=== PATIENT | female | born 1970 | race Caucasian/White ===

== ENCOUNTER 2017-05-07 20:34 | Emergency (ER) | payer OTHER ==
[2017-05-07 20:57] VITALS: BMI 23.0
[2017-05-07 21:03] VITALS: BP 127/79; TEMP 98.2
--- NOTE | 2017-05-07 21:25 | ED PDOC ---
Arrival/HPI - General Chief Complaint: Abdominal Pain Time Seen by Provider: 05/07/17 21:11 Historian: Patient - History of Present Illness Narrative History of Present Illness (Text): 05/07/17 21:11 A 46 year old female, whose past medical history includes asthma, presents to the emergency department complaining of abdominal discomfort and multiple episodes of non-bloody diarrhea for the past few days. Patient reports her symptoms began while visiting [facility], she states she recently returned yesterday night. Patient also reports bilateral ear pain, cough with green phlegm and runny nose but denies any fever, chills, nausea, vomiting, urinary symptoms, chest pain, shortness of breath or any other complaints. Time/Duration: Other (few days) Symptom Course: Unchanged Quality: Other Context: Other Past Medical History - Provider Review Nursing Documentation Reviewed: Yes - Travel History If Yes, travel location?: [facility] [place] - Infectious Disease Hx of Infectious Diseases: None - Tetanus Immunization Tetanus Immunization: Unknown - Reproductive Menopause: Yes - Cardiac Hx Cardiac Disorders: Yes - Neurological Hx Neurological Disorder: No - HEENT Hx HEENT Disorder: No - Renal Hx Renal Disorder: Yes Hx Pyelonephritis: Yes - Endocrine/Metabolic Hx Endocrine Disorders: Yes Hx Diabetes Mellitus Type 2: Yes (pre diabetic) - Hematological/Oncological Hx Blood Disorders: No - Integumentary Hx Dermatological Disorder: No - Musculoskeletal/Rheumatological Hx Musculoskeletal Disorders: No Hx Falls: No - Gastrointestinal Hx Gastrointestinal Disorders: No Hx Bowel Surgery: No - Genitourinary/Gynecological Hx Genitourinary Disorders: No - Psychiatric Hx Psychophysiologic Disorder: No Hx Depression: No Hx Emotional Abuse: No Hx Physical Abuse: No Hx Substance Use: No - Surgical History Hx Cholecystectomy: Yes Hx Orthopedic Surgery: Yes (right shoulder torn rotatator cuff sx 1999) Hx Tubal Ligation: Yes Other/Comment: breast reduction, tummy tuck, - Anesthesia Hx Anesthesia: Yes Hx Anesthesia Reactions: No - Suicidal Assessment Feels Threatened In Home Enviroment: No Family/Social History - Physician Review Nursing Documentation Reviewed: Yes Family/Social History: No Known Family HX Smoking Status: Light Smoker < 10 Cigarettes Daily Hx Alcohol Use: No Hx Substance Use: No Hx Substance Use Treatment: No Allergies/Home Meds Allergies/Adverse Reactions: Allergies No Known Allergies Allergy (Verified 01/09/14 14:46) Home Medications: Home Meds Medication Instructions Recorded Confirmed Dulaglutide [Trulicity] 0 mg SC QWK 11/30/15 05/07/17 Canagliflozin [Invokana] 100 mg PO DAILY 05/07/17 05/07/17 Naproxen Sod/Diphenhydramine 1 tab PO HS 05/07/17 05/07/17 [Holly Addison] Review of Systems - Physician Review All systems were reviewed & negative as marked: Yes - Review of Systems Constitutional: absent: Fevers, Night Sweats ENT: TMJ Pain (bilaterally), Rhinorrhea Respiratory: Cough, Sputum. absent: SOB Cardiovascular: absent: Chest Pain Gastrointestinal: Abdominal Pain, Diarrhea. absent: Nausea, Vomiting Genitourinary Female: absent: Dysuria, Frequency, Hematuria, Urine Output Changes Physical Exam Vital Signs Reviewed: Yes Vital Signs Temp Pulse Resp BP Pulse Ox 05/07/17 22:42 74 18 98 05/07/17 21:02 98.2 F 105 H 16 127/79 100 Temperature: Afebrile Blood Pressure: Normal Pulse: Tachycardic Respiratory Rate: Normal Appearance: Positive for: Well-Appearing, Non-Toxic, Comfortable Pain Distress: None Mental Status: Positive for: Alert and Oriented X 3 - Systems Exam Head: Present: Atraumatic, Normocephalic Pupils: Present: PERRL Extroacular Muscles: Present: EOMI Conjunctiva: Present: Normal Ears: Present: Erythema (to left TM canal), TM Bulging (left ear), TM Perf ( right ear) Mouth: Present: Moist Mucous Membranes Pharnyx: Present: Normal. No: ERYTHEMA, EXUDATE, TONSILS ENLARGED Neck: Present: Normal Range of Motion Respiratory/Chest: Present: Good Air Exchange, Wheezes (scant wheezing). No: Respiratory Distress, Accessory Muscle Use Cardiovascular: Present: Regular Rate and Rhythm, Normal S1, S2. No: Murmurs Abdomen: Present: Normal Bowel Sounds. No: Tenderness, Distention, Peritoneal Signs Back: Present: Normal Inspection Upper Extremity: Present: Normal Inspection. No: Cyanosis, Edema Lower Extremity: Present: Normal Inspection. No: Edema Neurological: Present: GCS=15, CN II-XII Intact, Speech Normal Skin: Present: Warm, Dry, Normal Color. No: Rashes Psychiatric: Present: Alert, Oriented x 3, Normal Insight, Normal Concentration Medical Decision Making ED Course and Treatment: 05/07/17 21:11 Impression: A 46 year old female with abdominal discomfort and non-bloody diarrhea. Patient recently traveled back from [place]. She also complains of bilateral ear pain, cough with green phlegm and rhinorrhea. Plan: -- Chest xray -- Labs -- Reassess and disposition Progress Notes: 05/07/17 21:56 Cxray negative for pnuemonia 05/07/17 22:14 Labs grossly normal. Abdomen soft NT/ND. - Lab Interpretations Lab Results: 05/07/17 21:35 05/07/17 21:35 Lab Results 05/07/17 21:35: Sodium 143, Potassium 3.8, Chloride 105, Carbon Dioxide 28, Anion Gap 14, BUN 16, Creatinine 1.1, Est GFR ( Amer) > 60, Est GFR (Non- Af Amer) 53, Random Glucose 185 H, Calcium 9.4, Phosphorus 3.5, Magnesium 1.8, Total Bilirubin 0.3, AST 26, ALT 29, Alkaline Phosphatase 76, Total Protein 6.8 , Albumin 4.0, Globulin 2.7, Albumin/Globulin Ratio 1.5, Lipase 226 05/07/17 21:35: WBC 6.4, RBC 4.48, Hgb 13.8, Hct 41.0, MCV 91.5, MCH 30.8, MCHC 33.7, RDW 12.7, Plt Count 218, MPV 9.7, Gran % 55.3, Lymph % (Auto) 33.7, [place] % (Auto) 8.2 H, Eos % (Auto) 2.6, Baso % (Auto) 0.2, Gran # 3.56, Lymph # 2.2, [place] # 0.5, Eos # 0.2, Baso # 0.01 I have reviewed the lab results: Yes - RAD Interpretation Radiology Orders: 05/07/17 CHEST PORTABLE [RAD] Stat - Medication Orders Current Medication Orders: Discontinued Medications Amoxicillin (Amoxil 500 Mg Cap) 500 mg PO STAT STA PRN Reason: Protocol Stop: 05/07/17 22:31 Last Admin: 05/07/17 22:42 Dose: 500 mg Ketorolac Tromethamine (Toradol) 30 mg IVP STAT STA Stop: 05/07/17 22:07 Last Admin: 05/07/17 22:23 Dose: 30 mg - Scribe Statement The provider has reviewed the documentation as recorded by the Natanael East Provider Natanael Attestation: All medical record entries made by the Daniiibe were at my direction and personally dictated by me. I have reviewed the chart and agree that the record accurately reflects my personal performance of the history, physical exam, medical decision making, and the department course for this patient. I have also personally directed, reviewed, and agree with the discharge instructions and disposition. Disposition/Present on Arrival - Present on Arrival Any Indicators Present on Arrival: No History of DVT/PE: No History of Uncontrolled Diabetes: No Urinary Catheter: No History of Decub. Ulcer: No History Surgical Site Infection Following: None - Disposition Have Diagnosis and Disposition been Completed?: Yes Diagnosis: Otitis media, Perforated tympanic membrane, URI (upper respiratory infection), Diarrhea Disposition: HOME/ ROUTINE Disposition Time: 21:57 Patient Plan: Discharge Condition: GOOD Discharge Instructions (ExitCare): Traveler's Diarrhea (ED), Otitis Media (ED) , Upper Respiratory Infection (ED) Additional Instructions: Take full course of antibiotics. Return to ED if condition worsens. Follow-up with PMD within 2 days Prescriptions: Amoxicillin 500 mg PO TID #30 tablet Benzonatate [Tessalon Perles] 100 mg PO TID PRN #20 sgl PRN Reason: Cough Ciprofloxacin/Dexamethasone [Ciprodex 0.3%-0.1% 7.5 Ml] 2 drop AU QID #1 bottle Referrals: Argelia Mo MD [Primary Care Provider] - Follow up with primary Forms: [employer] ([place])
[2017-05-07 21:43] LABS: BASO # 0.01 K/mm3 (0.0-2.0); BASO % 0.2 % (0.0-3.0); EOS # 0.2 (0.0-0.7); EOS % 2.6 % (1.5-5.0); GRAN # 3.56 (1.4-6.5); GRAN % 55.3 % (50.0-68.0); LYMPH # 2.2 (1.2-3.4); LYMPH % 33.7 % (22.0-35.0); MEAN CELL VOLUME 91.5 fl (80.0-105.0); MEAN CORPUSCULAR HEMOGLOBIN 30.8 pg (25.0-35.0); MEAN CORPUSCULAR HGB CONC 33.7 g/dl (31.0-37.0); MEAN PLATELET VOLUME 9.7 fl (7.0-11.0); MONO # 0.5 (0.1-0.6); MONO % 8.2 % (1.0-6.0); RED CELL DISTRIBUTION WIDTH 12.7 % (11.5-14.5); WHITE BLOOD COUNT 6.4 10^3/ul (4.5-11.0)
[2017-05-07 21:54] LABS: ALB/GLOB RATIO 1.5 (1.1-1.8); ALKALINE PHOSPHATASE 76 U/L (38-133); ALT/SGPT 29 U/L (7-56); AST/SGOT 26 U/L (15-39); BILIRUBIN,TOTAL 0.3 mg/dL (0.2-1.3); BLOOD UREA NITROGEN 16 mg/dL (7-21); CALCIUM 9.4 mg/dL (8.4-10.5); CARBON DIOXIDE 28 mmol/L (21-33); CHLORIDE 105 mmol/L (98-107); GFR AFRICAN-AMERICAN > 60; GLUCOSE,RANDOM 185 mg/dL (70-110); LIPASE 226 U/L (23-300); MAGNESIUM 1.8 mg/dL (1.7-2.2); PHOSPHOROUS 3.5 mg/dL (2.5-4.5); POTASSIUM 3.8 mmol/L (3.6-5.0); SODIUM 143 mmol/L (132-148); TOTAL PROTEIN 6.8 g/dL (5.8-8.3)
[2017-05-07 22:42] VITALS: PULSE 74; RESP 18; O2SAT 98
--- NOTE | 2017-05-08 07:15 | RAD ---
HISTORY: cough COMPARISON: 05/18/2016 FINDINGS: LUNGS: No consolidation. 2 to 3 mm calcified granuloma mid left lung zone -unchanged. Otherwise lungs are clear PLEURA: No significant pleural effusion identified, no pneumothorax apparent. CARDIOVASCULAR: Normal. OSSEOUS STRUCTURES: No significant abnormalities. VISUALIZED UPPER ABDOMEN: Right upper quadrant cholecystectomy clips OTHER FINDINGS: None. IMPRESSION: No interval pathology noted. Incidental left mid lung zone granuloma
== END 2017-05-07 22:42 | disposition home or self-care (01) ==
LOC: ED 20:34
DX: J06.9 Acute upper respiratory infection, unspecified (principal); R19.7 Diarrhea, unspecified; H72.91 Unspecified perforation of tympanic membrane, right ear; H66.90 Otitis media, unspecified, unspecified ear
CPT/HCPCS: 71010; 80053; 83690; 83735; 84100; 85025; 96374; 99283; J1885

== ENCOUNTER 2018-02-23 22:47 | Emergency (ER) | payer OTHER ==
[2018-02-23 22:47] VITALS: BMI 23.0
--- NOTE | 2018-02-23 23:06 | ED PDOC ---
Arrival/HPI - General Time Seen by Provider: 02/23/18 23:00 Historian: Patient - History of Present Illness Narrative History of Present Illness (Text): 02/23/18 23:03 47 year old female, pmh including h.pylori, nkda, complaining of burning urinary sensation with frequency x 3 days. Pt. has no nausea or vomiting, no fever or chills, no night sweat, no rash, no numbness or tingling, no other medical or psychological complaints. Past Medical History - Provider Review Nursing Documentation Reviewed: Yes - Infectious Disease Hx of Infectious Diseases: None - Tetanus Immunization Tetanus Immunization: Unknown - Cardiac Hx Cardiac Disorders: Yes - Neurological Hx Neurological Disorder: No - HEENT Hx HEENT Disorder: No - Renal Hx Renal Disorder: Yes Hx Pyelonephritis: Yes - Endocrine/Metabolic Hx Endocrine Disorders: Yes Hx Diabetes Mellitus Type 2: Yes (pre diabetic) - Hematological/Oncological Hx Blood Disorders: No - Integumentary Hx Dermatological Disorder: No - Musculoskeletal/Rheumatological Hx Musculoskeletal Disorders: No Hx Falls: No - Gastrointestinal Hx Gastrointestinal Disorders: No Hx Bowel Surgery: No - Genitourinary/Gynecological Hx Genitourinary Disorders: No - Psychiatric Hx Psychophysiologic Disorder: No Hx Depression: No Hx Emotional Abuse: No Hx Physical Abuse: No Hx Substance Use: No - Surgical History Hx Cholecystectomy: Yes Hx Orthopedic Surgery: Yes (right shoulder torn rotatator cuff sx 1998) Hx Tubal Ligation: Yes Other/Comment: breast reduction, tummy tuck, - Anesthesia Hx Anesthesia: Yes Hx Anesthesia Reactions: No - Suicidal Assessment Feels Threatened In Home Enviroment: No Family/Social History - Physician Review Nursing Documentation Reviewed: Yes Family/Social History: Unknown Family HX Smoking Status: Light Smoker < 10 Cigarettes Daily Hx Alcohol Use: No Hx Substance Use: No Hx Substance Use Treatment: No Allergies/Home Meds Allergies/Adverse Reactions: Allergies No Known Allergies Allergy (Verified 01/09/14 14:46) Home Medications: Home Meds Medication Instructions Recorded Confirmed Dulaglutide [Trulicity] 0 mg SC QWK 11/30/15 02/23/18 Amoxicillin 500 mg PO BID 02/23/18 02/23/18 Clarithromycin [Biaxin Filmtab] 250 mg PO BID 02/23/18 02/23/18 Lansoprazole [Prevacid] 30 mg PO BID 02/23/18 02/23/18 Review of Systems - Review of Systems Constitutional: absent: Fatigue, Fevers Eyes: absent: Vision Changes ENT: absent: Hearing Changes Respiratory: absent: SOB, Cough Cardiovascular: absent: Chest Pain Gastrointestinal: absent: Abdominal Pain, Nausea, Vomiting Genitourinary Female: Dysuria, Frequency. absent: Hematuria, Urine Output Changes, Vaginal Bleeding, Vaginal Discharge Neurological: absent: Headache, Dizziness Psychiatric: absent: Anxiety, Depression, Suicidal Ideation Physical Exam Vital Signs Reviewed: Yes Temperature: Afebrile Blood Pressure: Normal Pulse: Regular Respiratory Rate: Normal Appearance: Positive for: Well-Appearing, Non-Toxic, Comfortable Pain Distress: Mild Mental Status: Positive for: Alert and Oriented X 3 - Systems Exam Head: Present: Atraumatic, Normocephalic Pupils: Present: PERRL Extroacular Muscles: Present: EOMI Conjunctiva: Present: Normal Mouth: Present: Moist Mucous Membranes Neck: Present: Normal Range of Motion Respiratory/Chest: Present: Clear to Auscultation, Good Air Exchange. No: Respiratory Distress, Accessory Muscle Use Cardiovascular: Present: Regular Rate and Rhythm, Normal S1, S2. No: Murmurs Abdomen: No: Tenderness, Distention, Peritoneal Signs, Rebound, Guarding Back: Present: Normal Inspection. No: CVA Tenderness, Midline Tenderness, Paraspinal Tenderness, Pain with Leg Raise, Decubitus Ulcer Upper Extremity: Present: Normal Inspection. No: Cyanosis, Edema Lower Extremity: Present: Normal Inspection. No: Edema Neurological: Present: GCS=15, CN II-XII Intact, Speech Normal, Motor Func Grossly Intact, Gait Normal, Memory Normal Skin: Present: Warm, Dry, Normal Color. No: Rashes Psychiatric: Present: Alert, Oriented x 3, Normal Insight, Normal Concentration Medical Decision Making ED Course and Treatment: 02/23/18 23:50 -labs/ua -IVF/toradol -Observe and reassess 02/24/18 00:19 -Urine hcg is negative. -Labs are non-significant -Urinalysis show +UTI, rocephine IV ordered. -pt. feels much better, no fever or chills, no elevation of wbc, tolerating po, will discharge home. -Discharge home with keflex, pyridium, stay hydrated, bed rest, follow up with your own pmd within 2 days, return to the ER for any new or worsening signs or symptoms. - Lab Interpretations Lab Results: 02/23/18 23:46 02/23/18 23:46 Lab Results 02/23/18 23:46: Urine Color Yellow, Urine Appearance Cloudy, Urine pH 6.0, Ur Specific [place] 1.020, Urine Protein 100 H, Urine Glucose (UA) >=1000, Urine Ketones Negative, Urine Blood Moderate H, Urine Nitrate Positive H, Urine Bilirubin Negative, Urine Urobilinogen 0.2, Ur Leukocyte Esterase Small H, Urine RBC Pending, Urine WBC Pending 02/23/18 23:46: WBC 9.1 D, RBC 4.49, Hgb 13.8, Hct 40.9, MCV 91.1, MCH 30.7, MCHC 33.7, RDW 12.5, Plt Count 217, MPV 9.9, Gran % 70.8 H, Lymph % (Auto) 19.9 L, [place] % (Auto) 7.7 H, Eos % (Auto) 1.4 L, Baso % (Auto) 0.2, Gran # 6.46, Lymph # (Auto) 1.8, [place] # (Auto) 0.7 H, Eos # (Auto) 0.1, Baso # (Auto) 0.02 02/23/18 23:46: Sodium 143, Potassium 3.6, Chloride 102, Carbon Dioxide 29, Anion Gap 16, BUN 17, Creatinine 1.0, Est GFR ( Amer) > 60, Est GFR (Non- Af Amer) 59, Random Glucose 254 H, Calcium 9.8, Magnesium 1.7, Total Bilirubin 0.3, AST 25, ALT 37, Alkaline Phosphatase 83, Total Protein 7.4, Albumin 4.4, Globulin 3.0, Albumin/Globulin Ratio 1.5 - Medication Orders Current Medication Orders: Sodium Chloride (Sodium Chloride 0.9%) 1,000 mls @ 999 mls/hr IV .Q1H1M STA Stop: 02/24/18 00:43 Last Admin: 02/23/18 23:54 Dose: 999 mls/hr eMAR Start Stop Document 02/23/18 23:54 AD (Rec: 02/23/18 23:54 AD [id number]) Intravenous Solution Start Date 02/23/18 Start Time 23:54 Ceftriaxone Sodium (Rocephin 1 Gram Ivpb) 1 gm in 100 mls @ 200 mls/hr IVPB STAT STA PRN Reason: Protocol Stop: 02/24/18 00:42 Discontinued Medications Ketorolac Tromethamine (Toradol) 30 mg IVP STAT STA Stop: 02/23/18 23:44 Last Admin: 02/23/18 23:54 Dose: 30 mg MAR Pain Assessment Document 02/23/18 23:54 AD (Rec: 02/23/18 23:54 AD [id number]) Pain Reassessment Is this a pain reassessment? No Presence of Pain Presence of Pain Yes IVP Administration Document 02/23/18 23:54 AD (Rec: 02/23/18 23:54 AD [id number]) Charges for Administration # of IVP Administrations 1 Phenazopyridine HCl (Pyridium) 200 mg PO STAT STA Stop: 02/23/18 23:52 Last Admin: 02/24/18 00:08 Dose: 200 mg - PA / [employer] / Resident Statement / has reviewed & agrees with the documentation as recorded. Disposition/Present on Arrival - Present on Arrival Any Indicators Present on Arrival: No History of DVT/PE: No History of Uncontrolled Diabetes: No Urinary Catheter: No History of Decub. Ulcer: No History Surgical Site Infection Following: None - Disposition Have Diagnosis and Disposition been Completed?: Yes Diagnosis: UTI (urinary tract infection) Disposition: HOME/ ROUTINE Disposition Time: 23:51 Patient Plan: Discharge Condition: IMPROVED Additional Instructions: -Discharge home with keflex, pyridium, stay hydrated, bed rest, follow up with your own pmd within 2 days, return to the ER for any new or worsening signs or symptoms. Prescriptions: Cephalexin [cephalexin] 500 mg PO TID #21 cap Phenazopyridine [Pyridium] 200 mg PO TID #6 tab Referrals: [facility] [place] [facility] [place] - Follow up with primary Robert Davis MD [Staff Provider] - Follow up with primary Forms: WORK NOTE
[2018-02-23] MEDS ORDERED: Sodium Chloride 0.9% 1,000 ML IV STA (23:43)
[2018-02-24 00:02] LABS: BASO # 0.02 K/mm3 (0.0-2.0); BASO % 0.2 % (0.0-3.0); EOS # 0.1 (0.0-0.7); EOS % 1.4 % (1.5-5.0); GRAN # 6.46 (1.4-6.5); GRAN % 70.8 % (50.0-68.0); HEMOGLOBIN 13.8 g/dL (12.0-16.0); LYMPH # 1.8 (1.2-3.4); LYMPH % 19.9 % (22.0-35.0); MEAN CELL VOLUME 91.1 fl (80.0-105.0); MEAN CORPUSCULAR HEMOGLOBIN 30.7 pg (25.0-35.0); MEAN CORPUSCULAR HGB CONC 33.7 g/dl (31.0-37.0); MEAN PLATELET VOLUME 9.9 fl (7.0-11.0); MONO # 0.7 (0.1-0.6); MONO % 7.7 % (1.0-6.0); RBC 4.49 10^6/uL (3.5-6.1); RED CELL DISTRIBUTION WIDTH 12.5 % (11.5-14.5); URINE BILIRUBIN NEGATIVE (NEGATIVE); URINE BLOOD MODERATE (NEGATIVE); URINE GLUCOSE (UA) >=1000 mg/dL (NEGATIVE); URINE LEUKOCYTE ESTERASE SMALL Leu/uL (NEGATIVE); URINE PROTEIN 100 mg/dL (<30 mg/dL); URINE UROBILINOGEN 0.2 E.U./dL (<1 E.U./dL); WHITE BLOOD COUNT 9.1 10^3/ul (4.5-11.0)
[2018-02-24 00:06] LABS: URINE APPEARANCE CLOUDY (CLEAR); URINE COLOR YELLOW (YELLOW)
[2018-02-24] MEDS ORDERED: cefTRIAXone 1 gm 1 GM/100 ML BAG IVPB STA (00:13)
[2018-02-24 00:17] LABS: ALB/GLOB RATIO 1.5 (1.1-1.8); ALBUMIN 4.4 g/dL (3.0-4.8); ALT/SGPT 37 U/L (7-56); AST/SGOT 25 U/L (14-36); BLOOD UREA NITROGEN 17 mg/dL (7-21); CALCIUM 9.8 mg/dL (8.4-10.5); GFR AFRICAN-AMERICAN > 60; GFR NON-AFRICAN AMERICAN 59
[2018-02-24 00:19] LABS: URINE BACTERIA MOD (NEG); URINE EPITHELIAL CELLS 0 - 2 /hpf (0-5); URINE WBC TNTC /hpf (0-6)
[2018-02-24 00:21] VITALS: PULSE 80; RESP 18
[2018-02-24 01:08] VITALS: BP 130/82; TEMP 99; O2SAT 99
== END 2018-02-24 01:05 | disposition home or self-care (01) ==
LOC: ED 22:47
DX: N39.0 Urinary tract infection, site not specified (principal); F17.210 Nicotine dependence, cigarettes, uncomplicated; R73.03 Prediabetes
CPT/HCPCS: 80053; 81001; 83735; 85025; 87086; 96374; 99283; J0696; J1885; J7030